=== PATIENT | female | born 1995 | race Caucasian/White ===

== ENCOUNTER 2017-12-30 18:43 | Emergency (ER) | payer MEDICAID, OTHER ==
[~2017-12-30] VITALS: Ht 167.6 cm; Wt 54.4 kg
--- NOTE | 2017-12-30 18:55 | NUR ---
PATIENT IS NOT IN ED WAITING ROOM. UNABLE TO TRIAGE PATIENT AT THIS TIME. WILL TRY AGAIN LATER.
[2017-12-30 19:00] VITALS: BP 129/82
== END 2017-12-30 19:29 | disposition home or self-care (01) ==
LOC: ER 18:48
DX: R06.02 Shortness of breath (principal); F41.9 Anxiety disorder, unspecified; Z98.890 Other specified postprocedural states; Z88.0 Allergy status to penicillin; Z88.2 Allergy status to sulfonamides
CPT/HCPCS: 99284; A4606; Z7610

== ENCOUNTER 2020-04-26 17:34 | Emergency (ER) | payer MEDICAID ==
[~2020-04-26] VITALS: Ht 167.6 cm; Wt 56.7 kg
--- NOTE | 2020-04-26 17:45 | NUR ---
PT BIB SELF WITH HER FIANCE. C/O PALPITATIONS. PT STATES THAT ITS STARTED '3 WEEKS AGO' AND THAT THE 'PALPITATIONS COMES AND GOES.' PT DENIES CHEST PAIN OR SOB, N/V OR ANY OTHER SYMPTOMS. VS CHECKED. HOOKED ON MONITOR AWAITING MD ALLEN.
--- NOTE | 2020-04-26 18:05 | NUR ---
EKG CURRENT BEING DONE BY BEDSIDE.
--- NOTE | 2020-04-26 18:09 | NUR ---
LAKESHIA EGAN CURRENTLY IN THE ROOM ASSESSING THE PT.
[2020-04-26] MEDS ORDERED: IV NS 0.9% 1,000 ML BAG IV ONE (18:30)
[2020-04-26 18:43] LABS: CALCIUM, SERUM 9.2 mg/dL (8.5-10.1); CREATININE 0.6 mg/dL (0.6-1.3); POTASSIUM 3.7 mmol/L (3.5-5.1)
--- NOTE | 2020-04-26 19:06 | NUR ---
PT WAS FINALLY ABLE TO PROVIDE URINE SPECIMEN. URINE COLLECTED. SENT TO LAB.
[2020-04-26 19:55] LABS: BASOPHILS % (AUTO) 0.8 % (0.0-2.0); EOSINOPHILS % (AUTO) 5.2 % (0.0-6.0); HEMATOCRIT 38 % (33-45); HEMOGLOBIN 12.3 g/dL (11.5-14.8); LYMPHOCYTES # (AUTO) 1.5 /CMM (0.8-4.8); LYMPHOCYTES % (AUTO) 25.5 % (20.0-44.0); MEAN CORPUSCULAR HGB CONC 32 g/dl (31.0-36.0); MEAN CORPUSCULAR VOLUME 85 fL (82-100); MONOCYTES # (AUTO) 0.4 /CMM (0.1-1.30); MONOCYTES % (AUTO) 7.1 % (2.0-12.0); NEUTROPHILS # (AUTO) 3.5 /CMM (1.8-8.9); NEUTROPHILS % (AUTO) 61.4 % (43.0-81.0); PLATELET COUNT (AUTO) 209 /CMM (150-450); RED BLOOD CELL COUNT(AUTO) 4.49 MIL/uL (4.0-5.2); WHITE BLOOD COUNT (AUTO) 5.8 K/uL (4.3-11.0)
--- NOTE | 2020-04-26 20:04 | NUR ---
Patient discharged to home in stable condition. Written and verbal after care instructions given. Patient verbalizes understanding of instruction. IV removed. Catheter intact and site benign. Pressure and 4x4 applied to site. No bleeding noted.
[2020-04-26 20:07] VITALS: BP 129/82
== END 2020-04-26 20:08 | disposition home or self-care (01) ==
LOC: ER 17:34
DX: F41.9 Anxiety disorder, unspecified (principal); R00.0 Tachycardia, unspecified; R00.2 Palpitations; Z98.890 Other specified postprocedural states; Z88.0 Allergy status to penicillin; Z88.2 Allergy status to sulfonamides
CPT/HCPCS: 36415; 80048-TC; 84703-TC; 85025-TC